=== PATIENT | female | born 1950 | race Caucasian/White ===

== ENCOUNTER → 2016-11-18 09:36 | Outpatient (CLI) | payer MEDICARE ==
[2013-01-17 08:14] VITALS: BMI 44.1
[~2016-11-18 09:36] MED LIST: COZAAR25 MG PO; GLIPIZIDE10 MG PO; LASIX40 MG PO; MOTRIN800 MG PO; NORVASC5 MG PO; PLAQUENIL200 MG PO; PRILOSEC20 MG PO; PROBIOTIC PO; SINGULAIR10 MG PO; SPIRIVA18 MCG INH; VITAMIN D31000 UNIT PO; ZYRTEC10 M1 PO
== END | disposition home or self-care (01) ==
LOC: D.RAD 08:00
DX: J47.9 Bronchiectasis, uncomplicated (principal)

== ENCOUNTER → 2017-05-09 12:51 | Outpatient (CLI) | payer MEDICARE ==
[2013-01-17 08:14] VITALS: BMI 44.1
== END | disposition home or self-care (01) ==
LOC: D.RT 12:51
DX: J47.9 Bronchiectasis, uncomplicated (principal)

== ENCOUNTER → 2017-12-27 05:52 | Outpatient (CLI) | payer MEDICARE ==
[2013-01-17 08:14] VITALS: BMI 44.1
== END | disposition home or self-care (01) ==
LOC: D.MAMMO 05:52
DX: Z12.31 Encounter for screening mammogram for malignant neoplasm of breast (principal)

== ENCOUNTER → 2018-06-20 08:47 | Outpatient (CLI) | payer MEDICARE ==
[2013-01-17 08:14] VITALS: BMI 44.1
== END | disposition home or self-care (01) ==
LOC: D.RT 08:47
DX: J84.9 Interstitial pulmonary disease, unspecified (principal)

== ENCOUNTER → 2018-08-21 09:57 | Outpatient (CLI) | payer MEDICARE ==
[2013-01-17 08:14] VITALS: BMI 44.1
[2018-08-21 10:50] LABS: BASOPHILS 0.5 % (0-2); EOSINOPHILS 0.8 % (0-7); HEMATOCRIT 49.4 % (36.0-48.0); HEMOGLOBIN 16.4 g/dL (12-16); IMMATURE GRANULOCYTES 0.1 % (0-5); LYMPHOCYTES 11.3 % (15-50); MCH 29.4 pg (26.0-34.0); MCHC 33.2 g/dL (31.0-37.0); MCV 88.7 fL (80.0-100.0); MEAN PLATELET VOLUME 10.8 fL (7.4-10.4); MONOCYTES 10.9 % (2-11); NEUTROPHILS 76.4 % (40-80); PLATELET COUNT 161 10x3/uL (130-400); RBC 5.57 10x6/uL (4.00-5.40); RDW 13.8 % (11.5-14.5); WBC 7.5 10x3/uL (4.8-10.8)
[2018-08-24 14:18] LABS: ANCA - ANTIMYELOPEROXIDASE <9.0 U/mL (0.0-9.0); ANCA - ANTIPROTEINASE 3 <3.5 U/mL (0.0-3.5); ANCA - ATYPICAL <1:20 titer (Neg:<1:20); ANCA - CYTOPLASMIC <1:20 titer (Neg:<1:20); ANCA - PERINUCLEAR <1:20 titer (Neg:<1:20)
== END | disposition home or self-care (01) ==
LOC: D.CT 09:57
PROVIDERS: Internal Medicine Pulmonary Disease
DX: J84.9 Interstitial pulmonary disease, unspecified (principal)

== ENCOUNTER → 2018-10-04 12:45 | Outpatient (CLI) | payer MEDICARE ==
[2013-01-17 08:14] VITALS: BMI 44.1
== END | disposition home or self-care (01) ==
LOC: D.CT 09-18 12:59
PROVIDERS: ATTEND Thoracic Surgery (Cardiothoracic Vascular Surgery)
DX: I71.4 Abdominal aortic aneurysm, without rupture (principal); I70.201 Unspecified atherosclerosis of native arteries of extremities, right leg

== ENCOUNTER → 2018-10-13 09:52 | Outpatient (CLI) | payer MEDICARE ==
[2013-01-17 08:14] VITALS: BMI 44.1
== END | disposition home or self-care (01) ==
LOC: D.US 09:52
PROVIDERS: ATTEND Thoracic Surgery (Cardiothoracic Vascular Surgery)
DX: I70.203 Unspecified atherosclerosis of native arteries of extremities, bilateral legs (principal)

== ENCOUNTER 2018-12-19 05:05 | Inpatient (IN) | payer MEDICARE ==
[2018-12-14 15:57] LABS: APPEARANCE CLEAR (CLEAR); BILIRUBIN NEGATIVE (NEGATIVE); COLOR YELLOW (YELLOW); GLUCOSE NEGATIVE (NEGATIVE); KETONE NEGATIVE (NEGATIVE); NITRITE NEGATIVE (NEGATIVE); PROTEIN NEGATIVE (NEGATIVE); SPECIFIC GRAVITY 1.015 (1.005-1.020); UROBILINOGEN NORMAL (NORMAL)
[2018-12-14 16:10] LABS: HEMOGLOBIN 16.5 g/dL (12-16); MCH 30.5 pg (26.0-34.0); MCHC 33.7 g/dL (31.0-37.0); MCV 90.6 fL (80.0-100.0); MEAN PLATELET VOLUME 11.3 fL (7.4-10.4); RBC 5.41 10x6/uL (4.00-5.40); RDW 13.4 % (11.5-14.5); WBC 8.5 10x3/uL (4.8-10.8)
[2018-12-14 16:25] LABS: ALBUMIN 3.8 g/dL (3.4-5.0); BILIRUBIN - TOTAL 0.72 mg/dL (0.2-1.3); CALCIUM 9.6 mg/dL (8.5-10.1); CARBON DIOXIDE 26.7 mmol/L (21.0-32.0); POTASSIUM - SERUM 4.7 mmol/L (3.5-5.1); PROTEIN - SERUM 7.7 g/dL (6.4-8.2)
[2018-12-14 19:40] LABS: INR 1.09 (0.85-1.17); PROTIME 13.6 SECONDS (11.6-15.0)
[2018-12-14 19:41] LABS: APTT 31.2 SECONDS (22.8-39.4)
[~2018-12-19] VITALS: Ht 162.6 cm; Wt 106.5 kg
[2018-12-19] VITALS (42 sets, daily range): BP systolic 99–173; BP diastolic 41–71; BMI 39.4; BMI 39.5
[~2018-12-19 05:05] MED LIST changes: +CELEXA20 MG PO; +CLARITIN 10 MG10 MG PO; +GAS-X125 M1 PO; +HYDROCODON-ACE1 EA10 PO; +IMODIUM2 MG PO; +LISINOPRIL2.5 MG PO; +MOTRIN PM CAPL1 EACH PO; +MUCINEX600 MG PO; +NIASPAN500 MG PO; +PLAQUENIL PO; +STOOL SOFTENER100 MG PO; +VENTOLIN HFA; +VITAMIN D5000 UNIT PO
--- NOTE | 2018-12-19 11:00 | NUR ---
ARRIVED TO UNIT [facility] 1020 VIA BED. ON NON-REBREATHER MASK 100% O2. CT ON LEFT LATERAL SIDE TO WATERSEAL. INCISION ON LEFT UPPER BACK DRESSING CDI. BARON IN PLACE WITH YELLOW URINE NOTED. R-RADIAL CHELLY SECURED IN PLACE WITH WRIST PROTECTOR. CONNECTED TO ICU MONITORS. HAS RIJ DRESSING CDI. CURRENTLY HAS PLASMOLYTE AT 100ML/HR, NITRO AT 28ML/HR, AND CLEVIPREX INITIATED AT THIS TIME AT 1MG/HR PER ORDERS. WILL CONTINUE TO MONITOR. AND TREAT.
--- NOTE | 2018-12-19 11:03 | OP ---
PATIENT NAME: TAPAN CARCAMO MEDICAL RECORD: [id number] :52 LOCATION:D.CVI D.CV03 ADMISSION DATE:12/19/18 SURGEON: DARREN MADRIGAL MD DATE OF OPERATION: 12/19/2018 SURGEON: Darren Madrigal MD ELEMENTARY PRINCIPAL: Jv Willard PROCEDURES PERFORMED: 1. Left video-assisted thoracic surgery with left lingular wedge resection. 2. Bronchoscopy. PREOPERATIVE DIAGNOSIS: Interstitial lung disease. POSTOPERATIVE DIAGNOSIS: Interstitial lung disease. ANESTHESIA: Double-lumen general endotracheal anesthesia. SPECIMENS: Lingula sent for permanent pathology as well as a separate section sent for AFB, fungal, routine aerobic and anaerobic cultures. COMPLICATIONS: None. SPECIMENS: None. BLOOD LOSS: Minimal. CONDITION: Stable. DISPOSITION: CV ICU. OPERATIVE FINDINGS: No significant intrapleural adhesions and wedge resection performed without difficulty. PROCEDURE INDICATIONS: Dyspnea and interstitial lung disease. PROCEDURE IN DETAIL: The patient was brought to the operating suite. General endotracheal anesthesia was obtained with a double-lumen tube. The patient placed in the right lateral decubitus position with appropriate padding and bronchoscopy performed with good position of the tube. No endobronchial lesions in the right lung. The patient's chest was sterilely prepped and draped. Incision was made at approximately the anterior axillary line one level below the tip of the scapula and the pleura was entered just above the lingula, which was then grasped after a second working port more posteriorly was made and the camera was inserted, and then inferiorly and posteriorly, the stapler was inserted. The lung was stapled. Specimen was removed. There was no bleeding. There were no other abnormalities noted with the lung. Chest tube was placed through the anterior site and placed into the apex, sutured into place. The other holes were closed with muscle layer subcutaneous and subcuticular. The patient returned to the supine position, extubated, to CV ICU, stable. TRANSINT:[id number] Voice Confirmation ID: [id number] DOCUMENT ID: [id number] OPERATIVE REPORT [id number] TAPAN CARCAMO DARREN MADRIGAL MD at 1103 CC: ISABEL MARTINEZ MD [id number] DICTATION DATE: 12/19/18 0953 STOCK CRANE OPERATOR: 12/19/18 1010 ADM IN [facility] [address] [facility] [place] [address]
--- NOTE | 2018-12-19 13:41 | NUR ---
NORVAS AND LISINIPRIL PO GIVEN PER ORDERS. ORDERS VERIFIED WITH MEDHAT MENDOZA, BEFORE ADMINISTERING THEM TO PATIENT.
--- NOTE | 2018-12-19 15:55 | NUR ---
PT DANGLED ON SIDE OF BED FOR ABOUT 15MINUTES. CT PUT OUT 6ML BLOODY DRAINAGE. REPOSITIONED PT BACK IN BED. PILLOW PLACED UNDER LEFT ARM. PERCOCET 10MG TAB GIVEN FOR PAIN 03/10. WILL CONTINUE TO MONITOR.
--- NOTE | 2018-12-19 17:00 | NUR ---
PT WITH EYES CLOSED. AROUSES TO VOICE. PULLS BETWEEN 500 AND 750 ON I.S. NO FUTHER NEEDS. WILL CONTINUE TO MONITOR.
--- NOTE | 2018-12-19 19:00 | NUR ---
REPORT RECEIVED, SHIFT ASSESSMENT COMPLETE SEE FLOW SHEET, PT HAS LEFT LATERAL CHEST CTx1 TO WATER SEAL, NO SEAL LEAK NOTED, PT DENIES NEEDS AT THIS TIME, VSS, WILL CONTINUE TO ASSESS
--- NOTE | 2018-12-19 23:00 | NUR ---
REASSESSMENT COMPLETE PER FLOW SHEET, PT AAOx4, REPOSITIONED IN BED WITH ASSIST, VSS, CT TO WATER SEAL, PT DENIES NEEDS AT THIS TIME
[2018-12-20] VITALS (15 sets, daily range): BP systolic 99–147; BP diastolic 44–67; Ht 162.6 cm; Wt 106.5 kg
--- NOTE | 2018-12-20 03:00 | NUR ---
REASSESSMENT COMPLETE PER FLOW SHEET, NO ACUTE CHANGES FROM PRIOR ASSESSMENT, PT DENIES PAIN OR NEEDS, VSS, WILL CONTINUE TO ASSESS
--- NOTE | 2018-12-20 05:00 | NUR ---
PT SAT UP ON BEDSIDE, TCDB COMPLETED, I/S PREFORMED WITH 1000-1250ML, NO ACUTE DISTRESS NOTED, VSS, WILL CONTINUE TO ASSESS
[2018-12-20 06:59] LABS: HEMATOCRIT 42.4 % (36.0-48.0); MCH 29.9 pg (26.0-34.0); MCV 90.6 fL (80.0-100.0); MEAN PLATELET VOLUME 11.2 fL (7.4-10.4); RBC 4.68 10x6/uL (4.00-5.40); RDW 13.2 % (11.5-14.5); WBC 9.7 10x3/uL (4.8-10.8)
[2018-12-20 07:03] LABS: ALBUMIN 3.1 g/dL (3.4-5.0); ANION GAP 11.8 mmol/L (8-16); BILIRUBIN - TOTAL 0.66 mg/dL (0.2-1.3); CALCIUM 8.7 mg/dL (8.5-10.1); CARBON DIOXIDE 26.5 mmol/L (21.0-32.0); CREATININE - SERUM 1.1 mg/dL (0.6-1.3); POTASSIUM - SERUM 4.3 mmol/L (3.5-5.1); PROTEIN - SERUM 6.7 g/dL (6.4-8.2)
--- NOTE | 2018-12-20 08:39 | NUR ---
DR MADRIGAL HERE. L CT DCD BY DR MADRIGAL. 2MG MS GIVEN PRIOR TO TAKING CT OUT. PT OOB TO CHAIR. BREAKFAST TRAY SERVED AND PT FEEDS SELF. FAMILY AT BS. PT MARISA WELL.
[2018-12-20 11:14] LABS: FUNGUS STAIN Final report (())
[2018-12-20] MEDS ORDERED: LOPRESSOR25 MG PO (11:24)
[2018-12-20] MEDS ORDERED: PERCOCET 5-3251 TAB PO (11:25)
--- NOTE | 2018-12-20 16:26 | NUR ---
CVL DCD. TIP INTACT. DSNG APPLIED. PRESSURE HELD. NO BLEEDING NOTED. PT AMBULATED WITH O2. DR MARTINEZ NOTIFIED RE: DC. DR MARTINEZ ADDED UD FOR HOME TX. CM SET UP UD FOR HOME. NO SOB NOTED WITH AMBULATING WITH 4LNC.
--- NOTE | 2018-12-20 17:10 | NUR ---
SABINA MORRIS HERE. DC INSTRUCTIONS GIVEN. RX CALLED TO [facility]. PT VERB UNDERSTANDING.
[2018-12-20 19:08] LABS: ACID FAST SMEAR Negative (()); AFB SPECIMEN PROCESSING Concentration (())
--- NOTE | 2018-12-21 16:40 | MORECARE ---
CASE MANAGEMENT DISCHARGE SUMMARY PATIENT: TAPAN CARCAMO UNIT: [id number] ADM DATE: 12/19/18 AGE: 68 : 51 SEX: F ROOM/BED: D.[facility] AUTHOR: ISATU PADILLA PHYSICIAN: REFERRING PHYSICIAN: CECILY MADRIGAL MD DATE OF SERVICE: 12/21/18 Discharge Plan Patient Name: TAPAN CARCAMO [facility] [facility] 1950 Planned Disposition: Home Anticipated Discharge Date: Discharge Date: 12/20/2018 Expected LOS: Initial Reviewer: [email or web address] Initial Review Date: 12/19/2018 Generated: 12/21/18 5:39 pm DCPIA - Discharge Planning Initial Assessment Updated by [email or web address]: Anne Marie Gallo on 12/21/18 4:35 pm * Is the patient Alert and Oriented? Yes * How many steps to enter\exit or inside your home? * PCP KATHLEEN * Pharmacy [facility] ON [address] * Preadmission Environment Home Alone * ADLs Independent * Equipment Oxygen * List name and contact numbers for known caregivers / representatives who currently or will assist patient after discharge: DIMAS CARCAMO [facility] - [phone] * Verbal permission to speak to the caregivers and representatives has been obtained from the patient. Yes * Community resources currently utilized None * Additional services required to return to the preadmission environment? No * Can the patient safely return to the preadmission environment? Yes * Has this patient been hospitalized within the prior 30 days at any hospital? No External Providers [facility] Next Contact Date: Service Request Date: Service Type: Resolution: Reviewer: Comments: Patient Name: TAPAN CARCAMO Page [phone] at 1640 All edits/amendments must be made on the electronic document DICTATION DATE: 12/21/181638 BOX TURNER: EWA 12/21/181638 RPT#: [id number] DC DATE:12/20/18 STATUS: DIS IN [address] [address] END OF REPORT
--- NOTE | 2018-12-21 16:52 | MORECARE ---
CASE MANAGEMENT DISCHARGE SUMMARY PATIENT: TAPAN CARCAMO UNIT: [id number] ADM DATE: 12/19/18 AGE: 68 : 51 SEX: F ROOM/BED: D.03 AUTHOR: VALERIE,DOC PHYSICIAN: REFERRING PHYSICIAN: CECILY MADRIGAL MD DATE OF SERVICE: 12/21/18 Discharge Plan Patient Name: TAPAN CARCAMO Facility: [facility]:[place] : 1950 Planned Disposition: Home Anticipated Discharge Date: Discharge Date: 12/20/2018 Expected LOS: Initial Reviewer: [email or web address] Initial Review Date: 12/19/2018 Generated: 12/21/18 5:52 pm Comments DCP- Discharge Planning Updated by [email or web address]: Anne Marie Gallo on 12/21/18 3:[address] LATE ENTRY 12/20/18 @ 1400 Patient Name: TAPAN CARCAMO Admission Status: Elective Accout number: [id number] Admission Date: 12-19-2018 : 1950 Admission Diagnosis:INTERSTITIAL PULMONARY DISEASE, UNSPECIFIED Attending: CECILY MADRIGAL Current LOS: 1 Anticipated DC Date: Planned Disposition: Home Primary Insurance: [facility] MEDICARE SOLUTIONS Discharge Planning Comments: CM met with patient at bedside about discharge planning /needs. Patient states she lives alone. Patient states she plans to discharge to her home. States she will have family transport her home upon discharge. Denies need for home health or other community resource needs. States home environment is safe. Patient has home 02 and portable 02 with [facility]. CM will set up Nebulizer and updrafts with [employer] per patient request / md order. CM will continue to follow and assist as needed with discharge planning / needs. [facility] delivered nebulizer to patient room and updraft medication will be mailed to patient home. Nursing called in updraft medication to [facility] on [address] so patient can have updrafts until mail order comes in. Utility Arborist: Anne Marie Gallo DCPIA - Discharge Planning Initial Assessment Updated by [id number]: Anne Marie Gallo on 12/21/18 4:35 pm * Is the patient Alert and Oriented? Yes * How many steps to enter\exit or inside your home? * PCP WANG * Pharmacy [facility] * Preadmission Environment Home Alone * ADLs Independent * Equipment Oxygen * List name and contact numbers for known caregivers / representatives who currently or will assist patient after discharge: DIMAS CARCAMO - [place] - [phone] * Verbal permission to speak to the caregivers and representatives has been obtained from the patient. Yes * Community resources currently utilized None * Additional services required to return to the preadmission environment? No * Can the patient safely return to the preadmission environment? Yes * Has this patient been hospitalized within the prior 30 days at any hospital? No Last DP export: 12/21/18 3:39 p Patient Name: TAPAN CARCAMO Page [phone] at 1652 All edits/amendments must be made on the electronic document DICTATION DATE: 12/21/181651 PROPERTY ADJUSTER: EWA 12/21/181651 RPT#: [id number] DC DATE:12/20/18 STATUS: DIS IN [facility] [address] [place] [address] END OF REPORT
== END 2018-12-20 17:35 | disposition home or self-care (01) | DRG 196 ==
LOC: D.CVICU 05:05 → D.SDCHOLD 05:05 → D.CVICU 07:30
PROVIDERS: ADMIT Thoracic Surgery (Cardiothoracic Vascular Surgery); ATTEND Thoracic Surgery (Cardiothoracic Vascular Surgery)
PROC: 0BB Respiratory System, Excision (ICD-10-PCS; principal; 2018-12-19 07:30)
DX: J84.9 Interstitial pulmonary disease, unspecified (principal); J96.21 Acute and chronic respiratory failure with hypoxia; M35.1 Other overlap syndromes; J98.11 Atelectasis; J47.9 Bronchiectasis, uncomplicated; K21.9 Gastro-esophageal reflux disease without esophagitis; I73.9 Peripheral vascular disease, unspecified; I10 Essential (primary) hypertension; Z86.718 Personal history of other venous thrombosis and embolism; Z87.891 Personal history of nicotine dependence; I73.00 Raynaud's syndrome without gangrene; G62.9 Polyneuropathy, unspecified; M32.9 Systemic lupus erythematosus, unspecified; R91.1 Solitary pulmonary nodule; I89.8 Other specified noninfective disorders of lymphatic vessels and lymph nodes; Z77.090 Contact with and (suspected) exposure to asbestos

== ENCOUNTER → 2019-01-04 10:17 | Outpatient (CLI) | payer MEDICARE ==
[2018-12-20 08:17] VITALS: BMI 40.3
[~2019-01-04 10:17] MED LIST changes: +LOPRESSOR25 MG PO; +PERCOCET 5-3251 TAB PO
[2019-01-04 11:25] LABS: BASOPHILS 0.4 % (0-2); EOSINOPHILS 3.7 % (0-7); HEMATOCRIT 47.7 % (36.0-48.0); HEMOGLOBIN 15.8 g/dL (12-16); IMMATURE GRANULOCYTES 0.4 % (0-5); MCH 30.2 pg (26.0-34.0); MCHC 33.1 g/dL (31.0-37.0); MCV 91.2 fL (80.0-100.0); MEAN PLATELET VOLUME 12.1 fL (7.4-10.4); NEUTROPHILS 71.5 % (40-80); RBC 5.23 10x6/uL (4.00-5.40); RDW 13.2 % (11.5-14.5); WBC 7.4 10x3/uL (4.8-10.8)
[2019-01-04 11:34] LABS: PLATELET COUNT 214 10x3/uL (130-400)
== END | disposition home or self-care (01) ==
LOC: D.RAD 10:17
PROVIDERS: ATTEND Internal Medicine Pulmonary Disease
DX: J84.9 Interstitial pulmonary disease, unspecified (principal); J45.909 Unspecified asthma, uncomplicated

== ENCOUNTER 2019-04-01 17:27 | Observation (INO) | payer MEDICARE ==
[~2019-04-01] VITALS: Ht 162.6 cm; Wt 105.2 kg
[2019-04-01 17:49] LABS: BASOPHILS 0.4 % (0-2); EOSINOPHILS 0.6 % (0-7); HEMATOCRIT 50.1 % (36.0-48.0); HEMOGLOBIN 16.8 g/dL (12-16); IMMATURE GRANULOCYTES 0.1 % (0-5); LYMPHOCYTES 25.7 % (15-50); MCH 29.4 pg (26.0-34.0); MCHC 33.5 g/dL (31.0-37.0); MCV 87.6 fL (80.0-100.0); MEAN PLATELET VOLUME 11.6 fL (7.4-10.4); MONOCYTES 12.1 % (2-11); NEUTROPHILS 61.1 % (40-80); PLATELET COUNT 178 10x3/uL (130-400); RBC 5.72 10x6/uL (4.00-5.40); RDW 14.5 % (11.5-14.5); WBC 7.3 10x3/uL (4.8-10.8)
[2019-04-01 17:54] VITALS: BP 172/78
[2019-04-01 17:58] LABS: APTT 30.9 SECONDS (22.8-39.4); INR 1.1 (0.85-1.17); PROTIME 13.7 SECONDS (11.6-15.0)
[2019-04-01 18:29] VITALS: BP 168/73
[2019-04-01 18:32] LABS: ALKALINE PHOSPHATASE 78 U/L (46-116); ALT (SGPT) 19 U/L (10-68); CALC OSMOLALITY 281 mosm/kg (275-300); CALCIUM 9.8 mg/dL (8.5-10.1); CARBON DIOXIDE 21.6 mmol/L (21.0-32.0); CHLORIDE - SERUM 105 mmol/L (98-107); CREATININE - SERUM 1.4 mg/dL (0.6-1.3); GLUCOSE 100 mg/dL (74-106); POTASSIUM - SERUM 5.3 mmol/L (3.5-5.1); PROTEIN - SERUM 8.7 g/dL (6.4-8.2); SODIUM 139 mmol/L (136-145); UREA NITROGEN 23 mg/dL (7-18); eGFR NON AFRICAN AMERICAN 40 mL/min (90-120)
[2019-04-01 18:43] LABS: CKMB 0.9 U/L (0.0-3.6); CREATINE KINASE 36 UL (21-215); MAGNESIUM - SERUM 1.8 mg/dL (1.8-2.4); THYROID STIMULATING HORMONE 2.37 uIU/mL (0.36-3.74)
[2019-04-01 18:46] LABS: TROPONIN-I < 0.017 ng/mL (0.000-0.060)
[2019-04-01 20:00] VITALS: BP 160/88
[2019-04-01] MEDS ORDERED: HYDROCODON-ACE1 EA10 PO (20:02)
[2019-04-01] MEDS ORDERED: OMEPRAZOLE40 MG PO (20:04)
[2019-04-01] MEDS ORDERED: ALBUTEROL SULF8.5 GM INH (20:07)
[2019-04-01] MEDS ORDERED: CARAFATE1 G PO (20:10)
[2019-04-01] MEDS ORDERED: PEPCID40 MG PO (20:10)
[2019-04-01] MEDS ORDERED: PROVENTIL/2.5 MG/3 M INH (20:12)
[2019-04-01] MEDS ORDERED: FLUTICASONE PRO16 GM NASAL (20:13)
[2019-04-01 23:41] VITALS: BP 160/88
[2019-04-02] VITALS: BP 148/68
[2019-04-02 04:00] VITALS: BP 129/67
[2019-04-02 08:05] VITALS: BP 119/50
[2019-04-02 08:58] VITALS: Ht 162.6 cm; Wt 105.2 kg
--- NOTE | 2019-04-02 09:38 | MORECARE ---
CASE MANAGEMENT DISCHARGE SUMMARY PATIENT: TAPAN CRAWFORD UNIT: [id number] ADM DATE: 04/01/19 AGE: 68 : 51 SEX: F ROOM/BED: D.2232 AUTHOR: ISATU PADILLA PHYSICIAN: REFERRING PHYSICIAN: KALLI SEO MD DATE OF SERVICE: 04/02/19 Discharge Plan Patient Name: TAPAN CRAWFORD [facility] [facility] 1950 Planned Disposition: Home Anticipated Discharge Date: Discharge Date: Expected LOS: Initial Reviewer: [email or web address] Initial Review Date: 04/02/2019 Generated: 04/02/19 10:37 am DCPIA - Discharge Planning Initial Assessment Updated by [email or web address]: Keila Biggs on 04/02/19 9:37 am * Is the patient Alert and Oriented? Yes * How many steps to enter\exit or inside your home? 09/02 flight * PCP Dr. Medley * Pharmacy [facility] * Preadmission Environment Home with Family * ADLs Partial Dependent * Partial ADLs (Assistance needed) Ambulation * Equipment Nebulizer Other Oxygen Rolling Walker * Other Equipment Portable oxygen * List name and contact numbers for known caregivers / representatives who currently or will assist patient after discharge: Samgarrison whiteside Yany Crawford - Son and [facility] - [phone] * Verbal permission to speak to the caregivers and representatives has been obtained from the patient. Yes * Community resources currently utilized None * Please name any agencies selected above. DME for oxygen is [facility] * Additional services required to return to the preadmission environment? No * Can the patient safely return to the preadmission environment? Yes * Has this patient been hospitalized within the prior 30 days at any hospital? No Patient Name: TAPAN CRAWFORD Page [phone] at 0938 All edits/amendments must be made on the electronic document DICTATION DATE: 04/02/19936 POULTRY SERVICE TECHNICIAN: EWA 04/02/19936 RPT#: [id number] DC DATE: STATUS: ADM IN [place] [id number] END OF REPORT
--- NOTE | 2019-04-02 09:44 | MORECARE ---
CASE MANAGEMENT DISCHARGE SUMMARY PATIENT: TAPAN CARCAMO UNIT: [id number] ADM DATE: 04/01/19 AGE: 68 : 51 SEX: F ROOM/BED: D.2232 AUTHOR: VALERIE,DOC PHYSICIAN: REFERRING PHYSICIAN: KALLI SEO MD DATE OF SERVICE: 04/02/19 Discharge Plan Patient Name: TAPAN CARCAMO Facility: [facility]:[place] : 1950 Planned Disposition: Home Anticipated Discharge Date: Discharge Date: Expected LOS: Initial Reviewer: [email or web address] Initial Review Date: 04/02/2019 Generated: 04/02/19 10:44 am Comments DCP- Discharge Planning Updated by [email or web address]: Keila Biggs on 04/02/19 8:[address] Patient Name: TAPAN CARCAMO Admission Status: ER Accout number: [id number] Admission Date: 04-01-2019 : 1950 Admission Diagnosis: Attending: KALLI SEO Current LOS: 1 Anticipated DC Date: Planned Disposition: Home Primary Insurance: [facility] MEDICARE SOLUTIONS Discharge Planning Comments: CM met with patient to complete initial dc planning assessment. CM educated patient on the CM role and verbal consent given by patient to complete assessment. Patient lives at home with her son (Sam) and her daughter in law. At discharge patient plans to return and feels this is a safe discharge. CM discussed availability of home health, rehab services, and medical equipment. Patient denied known discharge needs at this time. States even though the house is a 3 level home, she only uses the first level, states her bedroom is on the first level as well as the living, kitchen and bathroom. No needs identified. CM will continue to follow and will assist as needed with dc plans/needs. Manager Er: Keila Biggs DCPIA - Discharge Planning Initial Assessment Updated by [email or web address]: Keila Biggs on 04/02/19 9:37 am * Is the patient Alert and Oriented? Yes * How many steps to enter\exit or inside your home? 2/2 flight * PCP Dr. Medley * Pharmacy [facility] on [address] * Preadmission Environment Home with Family * ADLs Partial Dependent * Partial ADLs (Assistance needed) Ambulation * Equipment Nebulizer Other Oxygen Rolling Walker * Other Equipment Portable oxygen * List name and contact numbers for known caregivers / representatives who currently or will assist patient after discharge: Chito Carcamo - Son and [facility] [phone] * Verbal permission to speak to the caregivers and representatives has been obtained from the patient. Yes * Community resources currently utilized None * Please name any agencies selected above. DME for oxygen is [facility] * Additional services required to return to the preadmission environment? No * Can the patient safely return to the preadmission environment? Yes * Has this patient been hospitalized within the prior 30 days at any hospital? No Last DP export: 04/02/19 8:38 am Patient Name: TAPAN CARCAMO Page 88476 at 0944 All edits/amendments must be made on the electronic document DICTATION DATE: 04/02/19943 INSULATOR TECHNICIAN: EWA 04/02/19943 RPT#: [id number] DC DATE: STATUS: ADM IN [facility] [address] [place] [address] END OF REPORT
[2019-04-02 12:15] LABS: CKMB 1.1 U/L (0.0-3.6); CREATINE KINASE 26 UL (21-215); TROPONIN-I < 0.017 ng/mL (0.000-0.060)
[2019-04-02 16:57] LABS: CKMB 0.8 U/L (0.0-3.6); CREATINE KINASE 26 UL (21-215); TROPONIN-I 0.018 ng/mL (0.000-0.060)
[2019-04-02 17:16] VITALS: BP 135/46
[2019-04-02 19:48] VITALS: BP 133/60
[2019-04-02 22:37] LABS: CKMB 0.8 U/L (0.0-3.6); CREATINE KINASE 37 UL (21-215); TROPONIN-I 0.017 ng/mL (0.000-0.060)
[2019-04-03 00:59] VITALS: BP 139/54
[2019-04-03 05:08] VITALS: BP 136/59
[2019-04-03 06:05] LABS: BASOPHILS 0.1 % (0-2); EOSINOPHILS 1.7 % (0-7); HEMATOCRIT 47.3 % (36.0-48.0); HEMOGLOBIN 15.8 g/dL (12-16); IMMATURE GRANULOCYTES 0.3 % (0-5); LYMPHOCYTES 15.4 % (15-50); MCH 29.2 pg (26.0-34.0); MCHC 33.4 g/dL (31.0-37.0); MCV 87.4 fL (80.0-100.0); MEAN PLATELET VOLUME 11.6 fL (7.4-10.4); MONOCYTES 15.9 % (2-11); NEUTROPHILS 66.6 % (40-80); PLATELET COUNT 162 10x3/uL (130-400); RBC 5.41 10x6/uL (4.00-5.40); RDW 14.7 % (11.5-14.5); WBC 6.9 10x3/uL (4.8-10.8)
[2019-04-03 06:31] LABS: ALBUMIN 3.3 g/dL (3.4-5.0); ANION GAP 11.1 mmol/L (8-16); BILIRUBIN - TOTAL 0.72 mg/dL (0.2-1.3); CALCIUM 9.3 mg/dL (8.5-10.1); CARBON DIOXIDE 26.4 mmol/L (21.0-32.0); CHOL - HDL RATIO 4.3 ratio (2.3-4.1); CREATININE - SERUM 1.4 mg/dL (0.6-1.3); LDL-HDL RATIO 2.8 ratio (1.5-3.5); PROTEIN - SERUM 7.5 g/dL (6.4-8.2)
[2019-04-03 06:32] LABS: POTASSIUM - SERUM 4.5 mmol/L (3.5-5.1)
[2019-04-03 08:04] VITALS: BP 152/57
[2019-04-03 12:36] VITALS: BP 124/51
[2019-04-03 16:25] VITALS: BP 135/54
[2019-04-03 20:00] VITALS: BP 148/58
[2019-04-04 00:41] VITALS: BP 167/65
[2019-04-04 04:35] VITALS: BP 142/55
[2019-04-04 06:57] LABS: BASOPHILS 0.3 % (0-2); EOSINOPHILS 1.7 % (0-7); HEMATOCRIT 45.9 % (36.0-48.0); HEMOGLOBIN 15.3 g/dL (12-16); IMMATURE GRANULOCYTES 0.1 % (0-5); LYMPHOCYTES 23.4 % (15-50); MCH 29.3 pg (26.0-34.0); MCHC 33.3 g/dL (31.0-37.0); MCV 87.8 fL (80.0-100.0); MEAN PLATELET VOLUME 11.7 fL (7.4-10.4); MONOCYTES 15.3 % (2-11); NEUTROPHILS 59.2 % (40-80); PLATELET COUNT 157 10x3/uL (130-400); RBC 5.23 10x6/uL (4.00-5.40); RDW 14.8 % (11.5-14.5); WBC 6.9 10x3/uL (4.8-10.8)
[2019-04-04 07:19] LABS: ALBUMIN 3.1 g/dL (3.4-5.0); ANION GAP 12.8 mmol/L (8-16); BILIRUBIN - TOTAL 0.61 mg/dL (0.2-1.3); CALCIUM 9.1 mg/dL (8.5-10.1); CARBON DIOXIDE 27.6 mmol/L (21.0-32.0); CREATININE - SERUM 1.2 mg/dL (0.6-1.3); POTASSIUM - SERUM 4.4 mmol/L (3.5-5.1); PROTEIN - SERUM 6.7 g/dL (6.4-8.2)
[2019-04-04 08:28] VITALS: BP 164/61
[2019-04-04 12:37] VITALS: BP 134/57
--- NOTE | 2019-04-04 15:38 | MORECARE ---
CASE MANAGEMENT DISCHARGE SUMMARY PATIENT: TAPAN CARCAMO UNIT: [id number] ADM DATE: 04/01/19 AGE: 68 : 51 SEX: F ROOM/BED: D.2232 AUTHOR: VALERIE,DOC PHYSICIAN: REFERRING PHYSICIAN: KALLI SEO MD DATE OF SERVICE: 04/04/19 Discharge Plan Patient Name: TAPAN CARCAMO Facility: [facility]:[place] : 1950 Planned Disposition: Home Anticipated Discharge Date: Discharge Date: Expected LOS: Initial Reviewer: [email or web address] Initial Review Date: 04/02/2019 Generated: 04/04/19 4:37 pm DCP- Discharge Planning Updated by [email or web address]: Keila Biggs on 04/02/19 8:[address] Patient Name: TAPAN CARCAMO Admission Status: ER Accout number: [id number] Admission Date: 04-01-2019 : 1950 Admission Diagnosis: Attending: KALLI SEO Current LOS: 1 Anticipated DC Date: Planned Disposition: Home Primary Insurance: [facility] MEDICARE SOLUTIONS Discharge Planning Comments: CM met with patient to complete initial dc planning assessment. CM educated patient on the CM role and verbal consent given by patient to complete assessment. Patient lives at home with her son (Sam) and her daughter in law. At discharge patient plans to return and feels this is a safe discharge. CM discussed availability of home health, rehab services, and medical equipment. Patient denied known discharge needs at this time. States even though the house is a 3 level home, she only uses the first level, states her bedroom is on the first level as well as the living, kitchen and bathroom. No needs identified. CM will continue to follow and will assist as needed with dc plans/needs. Retail Salesworker: Keila Biggs DCPIA - Discharge Planning Initial Assessment Updated by [email or web address]: Keila Biggs on 04/02/19 9:37 am * Is the patient Alert and Oriented? Yes * How many steps to enter\exit or inside your home? 2/2 flight * PCP Dr. Medley * Pharmacy [facility] on [address] * Preadmission Environment Home with Family * ADLs Partial Dependent * Partial ADLs (Assistance needed) Ambulation * Equipment Nebulizer Other Oxygen Rolling Walker * Other Equipment Portable oxygen * List name and contact numbers for known caregivers / representatives who currently or will assist patient after discharge: Chito Carcamo - Son and [facility] - [phone] * Verbal permission to speak to the caregivers and representatives has been obtained from the patient. Yes * Community resources currently utilized None * Please name any agencies selected above. DME for oxygen is [facility] * Additional services required to return to the preadmission environment? No * Can the patient safely return to the preadmission environment? Yes * Has this patient been hospitalized within the prior 30 days at any hospital? No External Providers External Provider: OTHER-OTHER Next Contact Date: Service Request Date: Service Type: Resolution: Reviewer: Comments: Coverage Notice Reviewer: [email or web address] Claudia Biggs Notice Issued Date-Time: 04/02/2019 15:01 Notice Type: Medicare Outpatient Observation Notice Notice Delivered To: Patient Relationship to Patient: Self Coffee Attendant Name: Delivery Method: HAND - Hand Delivered Litzy Days: Prior Verbal Notification: Recipient Understood Notice: Yes Recipient Signature: Yes Med Rec Note Co-signed by Attending: Coverage Notice Comment: LAZCANO delivered, explained, signed, given, copy placed in MR Last DP export: 04/02/19 8:44 am Patient Name: TAPAN CARCAMO Page 19779 at 1538 All edits/amendments must be made on the electronic document DICTATION DATE: 04/04/191536 CANE WEIGHER: EWA 04/04/191536 RPT#: [id number] DC DATE: STATUS: ADM IN [facility] [address] [place] [address] END OF REPORT
[2019-04-04 16:45] VITALS: BP 146/66
[2019-04-04 20:47] VITALS: BP 161/56
[2019-04-05 00:36] VITALS: BP 142/59
[2019-04-05 05:08] VITALS: BP 147/65
[2019-04-05 06:50] LABS: BASOPHILS 0.1 % (0-2); EOSINOPHILS 0.3 % (0-7); HEMATOCRIT 43.6 % (36.0-48.0); HEMOGLOBIN 15.4 g/dL (12-16); IMMATURE GRANULOCYTES 0.1 % (0-5); LYMPHOCYTES 22.2 % (15-50); MCH 30.6 pg (26.0-34.0); MCHC 35.3 g/dL (31.0-37.0); MCV 86.5 fL (80.0-100.0); MEAN PLATELET VOLUME 11.1 fL (7.4-10.4); MONOCYTES 10.9 % (2-11); NEUTROPHILS 66.4 % (40-80); PLATELET COUNT 153 10x3/uL (130-400); RBC 5.04 10x6/uL (4.00-5.40); RDW 14.5 % (11.5-14.5)
[2019-04-05 07:00] LABS: WBC 8.8 10x3/uL (4.8-10.8)
[2019-04-05 07:21] LABS: ALBUMIN 3.2 g/dL (3.4-5.0); ANION GAP 11.4 mmol/L (8-16); BILIRUBIN - TOTAL 0.44 mg/dL (0.2-1.3); CALCIUM 9.4 mg/dL (8.5-10.1); CARBON DIOXIDE 27.4 mmol/L (21.0-32.0); CREATININE - SERUM 1.2 mg/dL (0.6-1.3); POTASSIUM - SERUM 3.8 mmol/L (3.5-5.1)
[2019-04-05 08:50] VITALS: BP 143/53
--- NOTE | 2019-04-05 09:51 | MORECARE ---
CASE MANAGEMENT DISCHARGE SUMMARY PATIENT: TAPAN CARCAMO UNIT: [id number] ADM DATE: 04/01/19 AGE: 68 : 51 SEX: F ROOM/BED: D.2232 AUTHOR: VALERIE,DOC PHYSICIAN: REFERRING PHYSICIAN: KALLI SEO MD DATE OF SERVICE: 04/05/19 Discharge Plan Patient Name: TAPAN CARCAMO Facility: [facility]:[place] : 1950 Planned Disposition: Home Anticipated Discharge Date: Discharge Date: Expected LOS: Initial Reviewer: [email or web address] Initial Review Date: 04/02/2019 Generated: 04/05/19 10:50 am DCP- Discharge Planning Updated by [email or web address]: Keila Biggs on 04/02/19 8:[address] Patient Name: TAPAN CARCAMO Admission Status: ER Accout number: [id number] Admission Date: 04-01-2019 : 1950 Admission Diagnosis: Attending: KALLI SEO Current LOS: 1 Anticipated DC Date: Planned Disposition: Home Primary Insurance: [facility] MEDICARE SOLUTIONS Discharge Planning Comments: CM met with patient to complete initial dc planning assessment. CM educated patient on the CM role and verbal consent given by patient to complete assessment. Patient lives at home with her son (Sam) and her daughter in law. At discharge patient plans to return and feels this is a safe discharge. CM discussed availability of home health, rehab services, and medical equipment. Patient denied known discharge needs at this time. States even though the house is a 3 level home, she only uses the first level, states her bedroom is on the first level as well as the living, kitchen and bathroom. No needs identified. CM will continue to follow and will assist as needed with dc plans/needs. Embedded Processor: Keila Biggs DCPIA - Discharge Planning Initial Assessment Updated by [email or web address]: Keila Biggs on 04/02/19 9:37 am * Is the patient Alert and Oriented? Yes * How many steps to enter\exit or inside your home? 2/2 flight * PCP Dr. Medley * Pharmacy [facility] on [address] * Preadmission Environment Home with Family * ADLs Partial Dependent * Partial ADLs (Assistance needed) Ambulation * Equipment Nebulizer Other Oxygen Rolling Walker * Other Equipment Portable oxygen * List name and contact numbers for known caregivers / representatives who currently or will assist patient after discharge: Chito Carcamo - Son and [facility] - [phone] * Verbal permission to speak to the caregivers and representatives has been obtained from the patient. Yes * Community resources currently utilized None * Please name any agencies selected above. DME for oxygen is [facility] * Additional services required to return to the preadmission environment? No * Can the patient safely return to the preadmission environment? Yes * Has this patient been hospitalized within the prior 30 days at any hospital? No External Providers External Provider: [facility] Next Contact Date: Service Request Date: Service Type: Resolution: Reviewer: Comments: Coverage Notice Reviewer: [email or web address] Claudia Biggs Notice Issued Date-Time: 04/02/2019 15:01 Notice Type: Medicare Outpatient Observation Notice Notice Delivered To: Patient Relationship to Patient: Self Seo Assistant Name: Delivery Method: HAND - Hand Delivered Litzy Days: Prior Verbal Notification: Recipient Understood Notice: Yes Recipient Signature: Yes Med Rec Note Co-signed by Attending: Coverage Notice Comment: LAZCANO delivered, explained, signed, given, copy placed in MR Last DP export: 04/04/19 2:38 pm Patient Name: TAPAN CARCAMO Page 89506 at 0951 All edits/amendments must be made on the electronic document DICTATION DATE: 04/05/19949 NEWSAGENT: EWA 04/05/19949 RPT#: [id number] DC DATE: STATUS: ADM IN [facility] [address] [place] [address] END OF REPORT
--- NOTE | 2019-04-05 09:59 | MORECARE ---
CASE MANAGEMENT DISCHARGE SUMMARY PATIENT: TAPAN CARCAMO UNIT: [id number] ADM DATE: 04/01/19 AGE: 68 : 51 SEX: F ROOM/BED: D.2232 AUTHOR: VALERIEDOC PHYSICIAN: REFERRING PHYSICIAN: KALLI SEO MD DATE OF SERVICE: 04/05/19 Discharge Plan Patient Name: TAPAN CARCAMO Facility: [facility]:[place] : 1950 Planned Disposition: Home Anticipated Discharge Date: Discharge Date: Expected LOS: Initial Reviewer: [email or web address] Initial Review Date: 04/02/2019 Generated: 04/05/19 10:58 am Comments DCP- Discharge Planning Updated by [email or web address]: Keila Biggs on 04/05/19 8:[address] Patient already has portable oxygen from [facility] and it is in her room. She states she would like to get a battery powered portable oxygen. I have called Everardo with [facility] and clinical faxed to see if she would qualify. CM will continue to follow and assist with discharge planning/needs. DCP- Discharge Planning Updated by [email or web address]: Keila Biggs on 04/02/19 8:[address] Patient Name: TAPAN CARCAMO Admission Status: ER Accout number: [id number] Admission Date: 04-01-2019 : 1950 Admission Diagnosis: Attending: KALLI SEO Current LOS: 1 Anticipated DC Date: Planned Disposition: Home Primary Insurance: [facility] MEDICARE SOLUTIONS Discharge Planning Comments: CM met with patient to complete initial dc planning assessment. CM educated patient on the CM role and verbal consent given by patient to complete assessment. Patient lives at home with her son (Sam) and her daughter in law. At discharge patient plans to return and feels this is a safe discharge. CM discussed availability of home health, rehab services, and medical equipment. Patient denied known discharge needs at this time. States even though the house is a 3 level home, she only uses the first level, states her bedroom is on the first level as well as the living, kitchen and bathroom. No needs identified. CM will continue to follow and will assist as needed with dc plans/needs. Mower Sharpener: Keila Biggs DCPIA - Discharge Planning Initial Assessment Updated by [email or web address]: Keila Biggs on 04/02/19 9:37 am * Is the patient Alert and Oriented? Yes * How many steps to enter\exit or inside your home? 09/02 flight * PCP Dr. Medley * Pharmacy [facility] * Preadmission Environment Home with Family * ADLs Partial Dependent * Partial ADLs (Assistance needed) Ambulation * Equipment Nebulizer Other Oxygen Rolling Walker * Other Equipment Portable oxygen * List name and contact numbers for known caregivers / representatives who currently or will assist patient after discharge: Sam miesha Yany Carcamo - Son and [facility] - [phone] * Verbal permission to speak to the caregivers and representatives has been obtained from the patient. Yes * Community resources currently utilized None * Please name any agencies selected above. DME for oxygen is [facility] * Additional services required to return to the preadmission environment? No * Can the patient safely return to the preadmission environment? Yes * Has this patient been hospitalized within the prior 30 days at any hospital? No Coverage Notice Reviewer: [id number] - Keila Biggs Notice Issued Date-Time: 04/02/2019 15:01 Notice Type: Medicare Outpatient Observation Notice Notice Delivered To: Patient Relationship to Patient: Self Bit Tripoler Name: Delivery Method: HAND - Hand Delivered Litzy Days: Prior Verbal Notification: Recipient Understood Notice: Yes Recipient Signature: Yes Med Rec Note Co-signed by Attending: Coverage Notice Comment: LAZCANO delivered, explained, signed, given, copy placed in MR Last DP export: 04/05/19 8:51 am Patient Name: TAPAN CARCAMO Page 56262 at 0959 All edits/amendments must be made on the electronic document DICTATION DATE: 04/05/19957 SUPERVISOR BINDERY: EWA 04/05/19957 RPT#: [id number] DC DATE: STATUS: ADM IN [facility] [address] [place] [address] END OF REPORT
[2019-04-05] MEDS ORDERED: PLAVIX75 MG PO (10:36)
--- NOTE | 2019-04-05 11:32 | MORECARE ---
CASE MANAGEMENT DISCHARGE SUMMARY PATIENT: TAPAN CRAWFORD UNIT: [id number] ADM DATE: 04/01/19 AGE: 68 : 51 SEX: F ROOM/BED: D.2232 AUTHOR: ISATU PADILLA PHYSICIAN: REFERRING PHYSICIAN: KALLI SEO MD DATE OF SERVICE: 04/05/19 Discharge Plan Patient Name: TAPAN CRAWFORD Facility: [facility]:[place] : 1950 Planned Disposition: Home Anticipated Discharge Date: Discharge Date: Expected LOS: Initial Reviewer: [email or web address] Initial Review Date: 04/02/2019 Generated: 04/05/19 12:31 pm Comments DCP- Discharge Planning Updated by [email or web address]: Keila Salinasjorge on 04/05/19 10:[address] Everardo with [facility] states that she is not eligible for battery operated portable oxygen. She will be eligible in 20 months. I informed the patient. She does have portable oxygen tanks. Discharging home today with family. DCP- Discharge Planning Updated by [email or web address]: Keila Biggs on 04/05/19 8:[address] Patient already has portable oxygen from [facility] and it is in her room. She states she would like to get a battery powered portable oxygen. I have called Everardo with [facility] and clinical faxed to see if she would qualify. CM will continue to follow and assist with discharge planning/needs. DCP- Discharge Planning Updated by [id number]: Keila Biggs on 04/02/19 8:[address] Patient Name: TAPAN CRAWFORD Admission Status: ER Accout number: [id number] Admission Date: 04-01-2019 : 1950 Admission Diagnosis: Attending: KALLI SEO Current LOS: 1 Anticipated DC Date: Planned Disposition: Home Primary Insurance: [facility] MEDICARE SOLUTIONS Discharge Planning Comments: CM met with patient to complete initial dc planning assessment. CM educated patient on the CM role and verbal consent given by patient to complete assessment. Patient lives at home with her son (Sam) and her daughter in law. At discharge patient plans to return and feels this is a safe discharge. CM discussed availability of home health, rehab services, and medical equipment. Patient denied known discharge needs at this time. States even though the house is a 3 level home, she only uses the first level, states her bedroom is on the first level as well as the living, kitchen and bathroom. No needs identified. CM will continue to follow and will assist as needed with dc plans/needs. Dairy Farmer: Keila Dian DCPIA - Discharge Planning Initial Assessment Updated by [email or web address]: Keila Biggs on 04/02/19 9:37 am * Is the patient Alert and Oriented? Yes * How many steps to enter\exit or inside your home? 09/02 flight * PCP Dr. Medley * Pharmacy [facility] [address] * Preadmission Environment Home with Family * ADLs Partial Dependent * Partial ADLs (Assistance needed) Ambulation * Equipment Nebulizer Other Oxygen Rolling Walker * Other Equipment Portable oxygen * List name and contact numbers for known caregivers / representatives who currently or will assist patient after discharge: Sam miesha Yany Crawford - Son and [facility] - [phone] * Verbal permission to speak to the caregivers and representatives has been obtained from the patient. Yes * Community resources currently utilized None * Please name any agencies selected above. DME for oxygen is [facility] * Additional services required to return to the preadmission environment? No * Can the patient safely return to the preadmission environment? Yes * Has this patient been hospitalized within the prior 30 days at any hospital? No Coverage Notice Reviewer: [id number] - Keila Dian Notice Issued Date-Time: 04/02/2019 15:01 Notice Type: Medicare Outpatient Observation Notice Notice Delivered To: Patient Relationship to Patient: Self Supervisor Farm Equipment Maintenance Name: Delivery Method: HAND - Hand Delivered Litzy Days: Prior Verbal Notification: Recipient Understood Notice: Yes Recipient Signature: Yes Med Rec Note Co-signed by Attending: Coverage Notice Comment: LAZCANO delivered, explained, signed, given, copy placed in MR Last DP export: 04/05/19 8:58 am Patient Name: TAPAN CRAWFORD Page 31319 at 1132 All edits/amendments must be made on the electronic document DICTATION DATE: 04/05/19 1131 SOCIAL MEDIA EDITOR: EWA 04/05/19 1131 RPT#: [id number] DC DATE: STATUS: ADM IN [facility] [address] [place] [address] END OF REPORT
--- NOTE | 2019-04-09 12:40 | MORECARE ---
CASE MANAGEMENT DISCHARGE SUMMARY PATIENT: TAPAN CRAWFORD UNIT: [id number] ADM DATE: 04/01/19 AGE: 68 : 51 SEX: F ROOM/BED: D.2232 AUTHOR: ISATU PADILLA PHYSICIAN: REFERRING PHYSICIAN: KALLI SEO MD DATE OF SERVICE: 04/09/19 Discharge Plan Patient Name: TAPAN CRAWFORD Facility: [facility]:[place] : 1950 Planned Disposition: Home Anticipated Discharge Date: Discharge Date: 04/05/2019 Expected LOS: 0 Initial Reviewer: [email or web address] Initial Review Date: 04/02/2019 Generated: 04/09/19 1:40 pm Comments DCP- Discharge Planning Updated by [id number]: Keila Salinasjorge on 04/05/19 10:[address] Everardo with [facility] states that she is not eligible for battery operated portable oxygen. She will be eligible in 20 months. I informed the patient. She does have portable oxygen tanks. Discharging home today with family. DCP- Discharge Planning Updated by [id number]: Keila Biggs on 04/05/19 8:[address] Patient already has portable oxygen from [facility] and it is in her room. She states she would like to get a battery powered portable oxygen. I have called Everardo with [facility] and clinical faxed to see if she would qualify. CM will continue to follow and assist with discharge planning/needs. DCP- Discharge Planning Updated by [email or web address]: Keila Biggs on 04/02/19 8:[address] Patient Name: TAPAN CRAWFORD Admission Status: ER Accout number: [id number] Admission Date: 04-01-2019 : 1950 Admission Diagnosis: Attending: KALLI SEO Current LOS: 1 Anticipated DC Date: Planned Disposition: Home Primary Insurance: [facility] MEDICARE SOLUTIONS Discharge Planning Comments: CM met with patient to complete initial dc planning assessment. CM educated patient on the CM role and verbal consent given by patient to complete assessment. Patient lives at home with her son (Sam) and her daughter in law. At discharge patient plans to return and feels this is a safe discharge. CM discussed availability of home health, rehab services, and medical equipment. Patient denied known discharge needs at this time. States even though the house is a 3 level home, she only uses the first level, states her bedroom is on the first level as well as the living, kitchen and bathroom. No needs identified. CM will continue to follow and will assist as needed with dc plans/needs. Painter Apprentice: Keila Biggs DCPIA - Discharge Planning Initial Assessment Updated by [email or web address]: Keila Biggs on 04/02/19 9:37 am * Is the patient Alert and Oriented? Yes * How many steps to enter\exit or inside your home? 09/02 flight * PCP Dr. Medley * Pharmacy [facility] on [address] * Preadmission Environment Home with Family * ADLs Partial Dependent * Partial ADLs (Assistance needed) Ambulation * Equipment Nebulizer Other Oxygen Rolling Walker * Other Equipment Portable oxygen * List name and contact numbers for known caregivers / representatives who currently or will assist patient after discharge: Chito Crawford - Son and [facility] - [phone] * Verbal permission to speak to the caregivers and representatives has been obtained from the patient. Yes * Community resources currently utilized None * Please name any agencies selected above. DME for oxygen is [facility] * Additional services required to return to the preadmission environment? No * Can the patient safely return to the preadmission environment? Yes * Has this patient been hospitalized within the prior 30 days at any hospital? No Coverage Notice Reviewer: [id number] - Keila Dian Notice Issued Date-Time: 04/02/2019 15:01 Notice Type: Medicare Outpatient Observation Notice Notice Delivered To: Patient Relationship to Patient: Self Cane Pusher Name: Delivery Method: HAND - Hand Delivered Litzy Days: Prior Verbal Notification: Recipient Understood Notice: Yes Recipient Signature: Yes Med Rec Note Co-signed by Attending: Coverage Notice Comment: LAZCANO delivered, explained, signed, given, copy placed in MR Last DP export: 04/05/19 10:32 am Patient Name: TAPAN CRAWFORD Page [phone] at 1240 All edits/amendments must be made on the electronic document DICTATION DATE: 04/09/19 1239 FAMILY DENTIST: EWA 04/09/19 1239 RPT#: [id number] DC DATE:04/05/19 STATUS: DIS IN [facility] [address] [place] [address] END OF REPORT
== END 2019-04-05 15:23 | disposition home or self-care (01) ==
LOC: D.ER 17:27 → D.MS 18:47 → OBSVTIME 18:47 → D.MS 04-05 15:23
PROVIDERS: Family Medicine; ADMIT Internal Medicine Nephrology; ATTEND Internal Medicine Nephrology
DX: G45.9 Transient cerebral ischemic attack, unspecified (principal); G81.91 Hemiplegia, unspecified affecting right dominant side; R47.81 Slurred speech; E11.40 Type 2 diabetes mellitus with diabetic neuropathy, unspecified; I10 Essential (primary) hypertension; I73.9 Peripheral vascular disease, unspecified; J44.9 Chronic obstructive pulmonary disease, unspecified; J45.909 Unspecified asthma, uncomplicated; K21.9 Gastro-esophageal reflux disease without esophagitis; K58.9 Irritable bowel syndrome, unspecified; M77.9 Enthesopathy, unspecified; Z86.711 Personal history of pulmonary embolism; J96.11 Chronic respiratory failure with hypoxia; J47.9 Bronchiectasis, uncomplicated; M17.10 Unilateral primary osteoarthritis, unspecified knee; M32.9 Systemic lupus erythematosus, unspecified; I73.00 Raynaud's syndrome without gangrene

== ENCOUNTER → 2019-08-07 09:37 | Outpatient (CLI) | payer MEDICARE ==
[2019-04-02 08:58] VITALS: BMI 39.8
[~2019-08-07 09:37] MED LIST changes: +ALBUTEROL SULF8.5 GM INH; +CARAFATE1 G PO; +FLUTICASONE PRO16 GM NASAL; +OMEPRAZOLE40 MG PO; +PEPCID40 MG PO; +PLAVIX75 MG PO; +PROVENTIL/2.5 MG/3 M INH
== END | disposition home or self-care (01) ==
LOC: D.RT 04-04 08:00
PROVIDERS: ATTEND Internal Medicine Pulmonary Disease
DX: J84.9 Interstitial pulmonary disease, unspecified (principal)

== ENCOUNTER → 2019-08-20 11:52 | Outpatient (CLI) | payer MEDICARE ==
[2019-04-02 08:58] VITALS: BMI 39.8
[2019-08-20 12:51] LABS: CREATININE - SERUM 1.1 mg/dL (0.6-1.3)
== END | disposition home or self-care (01) ==
LOC: D.CT 08-14 13:00
PROVIDERS: ATTEND Internal Medicine Pulmonary Disease
DX: R07.9 Chest pain, unspecified (principal); R22.40 Localized swelling, mass and lump, unspecified lower limb

== ENCOUNTER 2019-09-28 20:11 | Inpatient (IN) | payer MEDICARE ==
[~2019-09-28] VITALS: Ht 162.6 cm; Wt 103.0 kg
[2019-09-28] MEDS ORDERED: IMURAN50 MG PO (20:20)
[2019-09-28] MEDS ORDERED: IPRAT-ALBUT 0.5-3 ML UPD (20:21)
[2019-09-28 20:54] LABS: BASOPHILS 0.2 % (0-2); EOSINOPHILS 0.3 % (0-7); HEMATOCRIT 48.6 % (36.0-48.0); HEMOGLOBIN 16.8 g/dL (12-16); IMMATURE GRANULOCYTES 0.4 % (0-5); LYMPHOCYTES 13.3 % (15-50); MCH 31.9 pg (26.0-34.0); MCHC 34.6 g/dL (31.0-37.0); MCV 92.4 fL (80.0-100.0); MEAN PLATELET VOLUME 11.5 fL (7.4-10.4); MONOCYTES 13.5 % (2-11); NEUTROPHILS 72.3 % (40-80); PLATELET COUNT 183 10x3/uL (130-400); RBC 5.26 10x6/uL (4.00-5.40); RDW 14.2 % (11.5-14.5); WBC 10.3 10x3/uL (4.8-10.8)
[2019-09-28 20:56] LABS: BACTERIA MANY /hpf (NEGATIVE); BILIRUBIN NEGATIVE (NEGATIVE); EPITHELIAL CELLS OCC /hpf (0-5); GLUCOSE NEGATIVE (NEGATIVE); KETONE NEGATIVE (NEGATIVE); NITRITE POSITIVE (NEGATIVE); RED CELLS - URINE OCC /hpf (0-5); UROBILINOGEN NORMAL (NORMAL); WHITE CELLS - URINE 0-5 /hpf (NEGATIVE)
[2019-09-28 21:04] LABS: APTT 27.8 SECONDS (22.8-39.4); INR 1.12 (0.85-1.17); PROTIME 14.4 SECONDS (11.6-15.0)
[2019-09-28 21:09] LABS: CALC OSMOLALITY 274 mosm/kg (275-300); CALCIUM 9.8 mg/dL (8.5-10.1); CARBON DIOXIDE 27.4 mmol/L (21.0-32.0); CHLORIDE - SERUM 100 mmol/L (98-107); CREATININE - SERUM 1.2 mg/dL (0.6-1.3); GLUCOSE 71 mg/dL (74-106); SODIUM 138 mmol/L (136-145); UREA NITROGEN 14 mg/dL (7-18); eGFR NON AFRICAN AMERICAN 47 mL/min (90-120)
[2019-09-28 21:12] VITALS: BP 139/59
[2019-09-28 21:27] LABS: ALKALINE PHOSPHATASE 84 U/L (30-120); ALT (SGPT) 26 U/L (10-68); BILIRUBIN - TOTAL 0.94 mg/dL (0.2-1.3); CKMB 1.2 U/L (0.0-3.6); CREATINE KINASE 50 UL (21-215); TROPONIN-I 0.032 ng/mL (0.000-0.060)
--- NOTE | 2019-09-28 22:50 | NUR ---
PT TO ROOM 2110 @ 2250 VIA W/C. NO S/S OF DISTRESS OBSERVED, RR EVEN AND UNLABORED ON 3L O2 VIA NC. PIV TO LT AC, INFUSING ABX, DRSG C/D/I. VSS. PATIENT DENIES NEEDS AT THIS TIME. CL IN REACH, BED LOCKED AND LOWERED. WILL CTM. ALLERGY BAND APPLIED.
--- NOTE | 2019-09-29 00:20 | NUR ---
QUICK START, MED REC, ADULT HX, SRS COMPLETED.
[2019-09-29 03:26] VITALS: BP 104/47; BMI 38.4
[2019-09-29 04:30] VITALS: BP 142/73
[2019-09-29 05:19] LABS: BASOPHILS 0.1 % (0-2); EOSINOPHILS 0 % (0-7); HEMATOCRIT 47.3 % (36.0-48.0); HEMOGLOBIN 16.1 g/dL (12-16); IMMATURE GRANULOCYTES 0.3 % (0-5); LYMPHOCYTES 10.6 % (15-50); MCH 31.5 pg (26.0-34.0); MCV 92.6 fL (80.0-100.0); MONOCYTES 2.4 % (2-11); NEUTROPHILS 86.6 % (40-80); PLATELET COUNT 169 10x3/uL (130-400); RBC 5.11 10x6/uL (4.00-5.40); RDW 14.2 % (11.5-14.5)
[2019-09-29 05:27] LABS: WBC 7.6 10x3/uL (4.8-10.8)
[2019-09-29 05:58] LABS: ALBUMIN 2.5 g/dL (3.4-5.0); BILIRUBIN - TOTAL 0.7 mg/dL (0.2-1.3); C-REACTIVE PROTEIN 11.1 mg/dL (0.0-0.9); CALCIUM 9.9 mg/dL (8.5-10.1); CREATININE - SERUM 1.2 mg/dL (0.6-1.3); PROTEIN - SERUM 7.1 g/dL (6.4-8.2)
[2019-09-29 06:00] LABS: ANION GAP 12.9 mmol/L (8-16); POTASSIUM - SERUM 4.9 mmol/L (3.5-5.1)
[2019-09-29 06:21] LABS: ERYTHROCYTE SEDIMENTATION RATE 15 mm/hr (0-30)
[2019-09-29 08:21] VITALS: BP 128/56
--- NOTE | 2019-09-29 08:32 | NUR ---
ROUNDING DONE WITH PATIENT ON 3L PER NC. STATES THAT SHE WEARS 4L AT HOME. ON HEART MONITOR SHOWING SR W 1 DEGREE AVB, BBB, HR 73. LEFT AC SEEN WITH SALINE LOCK. ON EP, LABS ARE WNL. WILL CONTINUE TO MONITOR AND ASSESS FOR NEEDS. CL IN USE. DENEIS NEEDS AT THIS TIME.
[2019-09-29 11:22] VITALS: BP 118/45
--- NOTE | 2019-09-29 11:56 | NUR ---
NUCLEAR MED TO CALL AND SAY THAT SALINE LOCK IS "HARD TO FLUSH". NEW 22G TO LEFT FA X 1 STICK PER THIS NURSE. WILL REMOVE AC WHEN BACK ON FLOOR.
--- NOTE | 2019-09-29 12:18 | NUR ---
BACK FROM VQ SCAN
--- NOTE | 2019-09-29 12:23 | NUR ---
LEFT AC REMOVED WITH TIP INTACT.
--- NOTE | 2019-09-29 13:23 | NUR ---
DENIES ANY NEEDS AT THIS TIME. SHE STATES THAT SHE WILL LET US KNOW WHEN SHE IS READY FOR A SHOWER, BED LINENS ALREADY CHANGED.
[2019-09-29 13:38] VITALS: Ht 162.6 cm; Wt 103.0 kg
--- NOTE | 2019-09-29 15:08 | NUR ---
WENT TO GIVE THE PATIENT HER TESSO CHRISTIE AND SHE WANTS TO WAIT UNTIL I CHECK HER BLOOD PRESSURE.
[2019-09-29 15:32] VITALS: BP 120/50
--- NOTE | 2019-09-29 16:23 | NUR ---
TYLENOL 650 MG GIVEN FOR HEADACHE. CONTAINER GIVEN FOR SPUTUM CULTURE.
--- NOTE | 2019-09-29 17:07 | NUR ---
GABBYM SENT TO LAB ORDERED.
--- NOTE | 2019-09-29 17:29 | NUR ---
DENIES ANY NEEDS AT THIS TIME. WILL CONTINUE TO MONITOR. BEDSIDE SHIFT REPORT GIVEN TO MAURY RENEE IN ROOM.
--- NOTE | 2019-09-29 19:09 | NUR ---
RECEIVED UP IN BED WITH EYES OPEN AND TV ON. ALERT AND ORIENTED. UP AD LB TO B/R. IV TO LT FA ASL. O2@ 3 LITERS PER N/C IN PLACE. TELEMETRY IN PLACE. DENIES ANY NEEDS AT THIS TIME.
[2019-09-29 20:30] VITALS: BP 123/53
[2019-09-30 00:30] VITALS: BP 122/58
[2019-09-30 04:30] VITALS: BP 139/67
[2019-09-30 05:31] LABS: BASOPHILS 0 % (0-2); EOSINOPHILS 0 % (0-7); HEMATOCRIT 44.5 % (36.0-48.0); HEMOGLOBIN 15.3 g/dL (12-16); IMMATURE GRANULOCYTES 0.3 % (0-5); MCH 31.3 pg (26.0-34.0); MCHC 34.4 g/dL (31.0-37.0); MEAN PLATELET VOLUME 12.1 fL (7.4-10.4); MONOCYTES 6.9 % (2-11); NEUTROPHILS 85.8 % (40-80); RBC 4.89 10x6/uL (4.00-5.40); RDW 14.2 % (11.5-14.5)
[2019-09-30 05:36] LABS: PLATELET COUNT 218 10x3/uL (130-400); WBC 12.1 10x3/uL (4.8-10.8)
[2019-09-30 05:45] LABS: ANION GAP 13.9 mmol/L (8-16); CALCIUM 9.9 mg/dL (8.5-10.1); CARBON DIOXIDE 24.1 mmol/L (21.0-32.0); CREATININE - SERUM 1.1 mg/dL (0.6-1.3)
--- NOTE | 2019-09-30 07:21 | NUR ---
RECIEVE REPORT. ALERT AND ORIENTED X4. SITTING UP IN BED WATCHING TV. DENIES ANY NEEDS. CONTINUE PLAN OF CARE AND SAFETY PRECAUTIONS.
[2019-09-30 08:06] VITALS: BP 137/53
[2019-09-30 11:47] VITALS: BP 122/46
[2019-09-30 15:55] VITALS: BP 131/60
--- NOTE | 2019-09-30 19:52 | NUR ---
RECEIVED BEDSIDE SHIFT REPORT. UP IN BED WITH EYES OPEN AND TV ON. ALERT AND ORIENTED X4. UP AD VARGHESE. C/O PRODUCTIVE COUGH WITH GREEN SPUTUM. RIGHT MID AND LOWER LOBE CRACKELS. O2@ 3 LITERS PER N/C IN PLACE. IV TO LT FA SL. TELEMETRY IN PLACE. DENIES ANY NEEDS.
[2019-09-30 20:30] VITALS: BP 103/52
[2019-10-01 00:30] VITALS: BP 117/37
[2019-10-01 04:30] VITALS: BP 127/50
[2019-10-01 05:56] LABS: BASOPHILS 0.1 % (0-2); EOSINOPHILS 0 % (0-7); HEMATOCRIT 44.2 % (36.0-48.0); HEMOGLOBIN 15.1 g/dL (12-16); IMMATURE GRANULOCYTES 0.5 % (0-5); LYMPHOCYTES 6.2 % (15-50); MCH 31.5 pg (26.0-34.0); MCHC 34.2 g/dL (31.0-37.0); MCV 92.3 fL (80.0-100.0); MEAN PLATELET VOLUME 12.1 fL (7.4-10.4); MONOCYTES 6.4 % (2-11); NEUTROPHILS 86.8 % (40-80); PLATELET COUNT 240 10x3/uL (130-400); RBC 4.79 10x6/uL (4.00-5.40); RDW 14.1 % (11.5-14.5); WBC 11.2 10x3/uL (4.8-10.8)
[2019-10-01 06:17] LABS: ANION GAP 12.6 mmol/L (8-16); CARBON DIOXIDE 25.2 mmol/L (21.0-32.0); CREATININE - SERUM 1.2 mg/dL (0.6-1.3)
[2019-10-01 06:22] LABS: POTASSIUM - SERUM 4.8 mmol/L (3.5-5.1)
--- NOTE | 2019-10-01 07:20 | NUR ---
RECIEVE REPORT. SITTING UP IN CHAIR RECIEVING UPDRAFT. DENIES ANY NEEDS. CONTINUE PLAN OF CARE AND SAFETY PRECAUTIONS.
[2019-10-01 08:43] VITALS: BP 130/52
[2019-10-01 11:46] VITALS: BP 126/48
[2019-10-01 15:47] VITALS: BP 124/78; BP 127/68
--- NOTE | 2019-10-01 19:25 | NUR ---
RECEIVED UP IN BED WITH EYES OPEN AND TV ON. ALERT AND ORIENTED X4. UP AD VARGHESE. WEARS BRIEFS IN BED. O2@ 3 LITERS PER N/C. IV TO LT FA SL.. TELEMETRY IN PLACE. DENIES ANY NEEDS AT THIS TIME.
[2019-10-01 20:00] VITALS: BP 120/53
[2019-10-02 00:55] VITALS: BP 128/62
[2019-10-02 04:42] VITALS: BP 147/74
[2019-10-02 06:34] LABS: BASOPHILS 0.1 % (0-2); EOSINOPHILS 0 % (0-7); HEMOGLOBIN 14.6 g/dL (12-16); IMMATURE GRANULOCYTES 0.7 % (0-5); LYMPHOCYTES 7.9 % (15-50); MCH 30.9 pg (26.0-34.0); MCHC 33.2 g/dL (31.0-37.0); MEAN PLATELET VOLUME 11.5 fL (7.4-10.4); MONOCYTES 7.9 % (2-11); NEUTROPHILS 83.4 % (40-80); PLATELET COUNT 231 10x3/uL (130-400); RBC 4.73 10x6/uL (4.00-5.40); RDW 14.2 % (11.5-14.5)
[2019-10-02 06:37] LABS: WBC 8.1 10x3/uL (4.8-10.8)
[2019-10-02 06:47] LABS: ANION GAP 10.9 mmol/L (8-16); CALCIUM 9.6 mg/dL (8.5-10.1); POTASSIUM - SERUM 4.9 mmol/L (3.5-5.1)
--- NOTE | 2019-10-02 07:57 | NUR ---
PT IN BED WITHH OB ELEVATED. O2 AT 5L VIA NC. EYES CLOSED. CHEST RISING AND FALLLING. BED LOW. CL IN REACH. WILL CONTINUE WITH POC.
[2019-10-02 09:58] VITALS: BP 139/58
--- NOTE | 2019-10-02 12:21 | NUR ---
OT NOTE: PT DOING MUCH BETTER TODAY. STATES THAT SHE FEELS MUCH BETTER TODAY. ABLE TO AMB TO AND FROM BATHROOM WITHOUT ASSIST; ABLE TO PERFORM TOILETING AND SINK HYGIENE WITH SPV/SBA; AMB INTO HALLWAY GREATER THAN 100 FT FOR STRENGHTENING AND ENDURANCE, REQUIRING 5L 02..PRACTICED USING ROLATOR WALKER THAT FAMILY BROUGHT UP FOR HER. EARLE ROLLE, OTR/L [id number]
[2019-10-02 12:56] VITALS: BP 143/69
--- NOTE | 2019-10-02 13:41 | NUR ---
Nutrition Follow-up: Good appetite/PO intake. Ate ~100% of breakfast this AM. Diet: Diabetic PO intake: 82% avg x 7 meals Wt: 228# (10/01 - bedscale); 223# ( - bedscale) Last BM: 2 days ago per pt Labs noted: Glu 166 Meds noted: Solumedrol, Protonix, Humulin -Continue current diet as tolerated. -Monitor wt; noted daily wts ordered. -RD following.
[2019-10-02 18:33] VITALS: BP 140/64
--- NOTE | 2019-10-02 18:38 | NUR ---
I have reviewed this patient and I concur with the Shift Assessment completed by the Licensed Practical Nurse today this shift.
--- NOTE | 2019-10-02 18:42 | NUR ---
OT NOTE: PT COMPLETED SUPINE TO SIT WITH SBA. PT COMPLETED UE AROM EXS. [id number] THANK YOU, MENDOZA PARRY
--- NOTE | 2019-10-02 19:15 | NUR ---
REPORT RECEIVED, WILL CONTINUE POC. PATIENT IS AAOX4, LYING IN SEMI-FOWLERS POSITION. NO S/S OF DISTRESS OBSERVED, RR EVEN AND UNLABORED ON ROOM AIR. PIV TO LT FA, SL, JULIANNG C/D/I. PATIENT DENIES NEEDS AT THIS TIME. CL IN REACH, BED LOCKED AND LOWERED. WILL CTM.
[2019-10-02 20:00] VITALS: BP 116/53
[2019-10-03] VITALS: BP 141/61
--- NOTE | 2019-10-03 02:13 | NUR ---
I have reviewed this patient and I concur with the Shift Assessment completed by the Licensed Practical Nurse today this shift.
[2019-10-03 04:00] VITALS: BP 132/62
[2019-10-03 07:22] LABS: ANION GAP 8.8 mmol/L (8-16); CALCIUM 9.4 mg/dL (8.5-10.1); CARBON DIOXIDE 28.1 mmol/L (21.0-32.0); POTASSIUM - SERUM 4.9 mmol/L (3.5-5.1)
[2019-10-03 07:33] LABS: BASOPHILS 0.1 % (0-2); EOSINOPHILS 0 % (0-7); HEMOGLOBIN 15.3 g/dL (12-16); IMMATURE GRANULOCYTES 1.4 % (0-5); LYMPHOCYTES 10.1 % (15-50); MCHC 33.3 g/dL (31.0-37.0); MCV 93.3 fL (80.0-100.0); MEAN PLATELET VOLUME 11.2 fL (7.4-10.4); MONOCYTES 9.8 % (2-11); NEUTROPHILS 78.6 % (40-80); PLATELET COUNT 244 10x3/uL (130-400); RBC 4.93 10x6/uL (4.00-5.40); RDW 14.2 % (11.5-14.5); WBC 8.8 10x3/uL (4.8-10.8)
--- NOTE | 2019-10-03 07:45 | NUR ---
AM ROUNDS COMPLETED. INTRODUCED MYSELF TO PT PRIMARY RN FOR TODAYS SHIFT. PT IS A&O SITTING UP IN BED RESTING QUIETLY. SHIFT ASSESSMENT COMPLETED. NO IMMEDIATE NEEDS AT THIS TIME. WILL REVIEW CHART AND ORDERS AND CPOC.
--- NOTE | 2019-10-03 08:19 | EC ---
PATIENT:TAPAN CARCAMO DATE OF SERVICE: 09/28/19 SEX: F MEDICAL RECORD: [id number] DATE OF : [birth year] LOCATION:D.M2 D.211 AGE OF PATIENT: 69 ADMISSION DATE: 09/28/19 REFERRING PHYSICIAN: INTERPRETING PHYSICIAN: RHONDA MIRELES MD ECHOCARDIOGRAM REPORT ECHO CHARGES 4 ECHO COMPLETE Date: 09/30/19 CLINICAL DIAGNOSIS: CHF ECHOCARDIOGRAPHIC MEASUREMENTS (adult normal given) AC root (d.<3.7cm) 3.0 cm LV Septum d (<1.2 cm> 1.2 cm Valve Excursion 1.7 cm LV Septum (systole) 1.4 cm Left Atria (s.<4.0cm> 3.7 cm LVPW d(<1.2cm) 1.5 cm RV (d.<2.3cm) 3.8 cm LVPW (sytole) 1.6 cm LV diastole(<5.6CM) 3.9 cm MV E-F(>70mm/sec) cm LV systole 2.8 cm LVOT Diameter 1.6 cm MV exc.(>10mm) 1.5 cm Est.ejection fraction (50-75%) % DOPPLER: LVIT cm/sec A 59. cm/sec E 74.0 cm/sec LA cm/sec RVSP 27 mmHg LVOT 93 cm/sec AOP1/2T m/s Asc. Ao 126 cm/sec RVOT 82 cm/sec RA cm/sec PA 132 cm/sec AV Gradient Peak 6.33 mmHg AV Mean 3.78 mmHg AV Area 1.7 cm MV Gradient Peak 4.67 mmHg MV Mean 2.09 mmHg MV Area cm COMMENTS: Yarn Twister: 2 SHAYAN COELHO Supervisor Statement Clerks: 3 Dr. Mahajan TAPE# PACS Pericardial Effusion N DATE OF SERVICE: Adequate 2D, color flow imaging and spectral Doppler, M-Mode. Mild LVH. LV internal dimensions are normal. Wall motion is normal. EF is greater than or equal to 55%. Aortic valve is tricuspid. No evidence of stenosis by Doppler interrogation. Left atrium is normal. Mitral valve shows no prolapse. Trace MR. Right-sided chambers are grossly normal. Trace TR. TRANSINT:[id number] Voice Confirmation ID: [id number] DOCUMENT ID: [id number] ECHOCARDIOGRAM REPORT [id number] TAPAN CARCAMO RHONDA MIRELES MD at 0819 CC: [id number] DICTATION DATE: 10/01/19927 PATROL MAN: 10/01/19 1041 ADM IN [place] [id number] [place] [id number]
[2019-10-03 09:00] VITALS: BP 151/61
[2019-10-03 12:00] VITALS: BP 155/60
--- NOTE | 2019-10-03 19:15 | NUR ---
REPORT RECEIVED, WILL CONTINUE POC. PATIENT IS AAOX4, SITTING IN CHAIR. NO S/S OF DISTRESS OBSERVED, RR EVEN AND UNLABORED ON 4L O2 VIA NC. PIV TO LT FA, SL. CUP OF ICE GIVEN PER REQUEST. PATIENT DENIES FURTHER NEEDS AT THIS TIME. CL IN REACH, WILL CTM.
--- NOTE | 2019-10-03 21:00 | NUR ---
PT C/O PAIN. PRN NORCO ADMINISTERED PER ORDERS.
[2019-10-03 21:17] VITALS: BP 154/79
[2019-10-04 00:31] VITALS: BP 118/61
[2019-10-04 04:40] VITALS: BP 146/57
[2019-10-04 05:51] LABS: BASOPHILS 0.1 % (0-2); EOSINOPHILS 0 % (0-7); HEMATOCRIT 47.9 % (36.0-48.0); IMMATURE GRANULOCYTES 2.6 % (0-5); LYMPHOCYTES 10.6 % (15-50); MCH 31.3 pg (26.0-34.0); MCHC 33.4 g/dL (31.0-37.0); MCV 93.6 fL (80.0-100.0); MEAN PLATELET VOLUME 10.8 fL (7.4-10.4); MONOCYTES 8.4 % (2-11); NEUTROPHILS 78.3 % (40-80); PLATELET COUNT 259 10x3/uL (130-400); RBC 5.12 10x6/uL (4.00-5.40); RDW 13.9 % (11.5-14.5); WBC 8.2 10x3/uL (4.8-10.8)
[2019-10-04 06:09] LABS: CALCIUM 9.7 mg/dL (8.5-10.1); CARBON DIOXIDE 29.9 mmol/L (21.0-32.0); CREATININE - SERUM 1.1 mg/dL (0.6-1.3); POTASSIUM - SERUM 4.9 mmol/L (3.5-5.1)
--- NOTE | 2019-10-04 07:33 | NUR ---
ROUNDING DONE WITH PATIENT HAVNG NO NEEDS VOICED. ON 3L PER NC. LEFT FA SEEN WITH SALINE LOCK. ON EP, LABS NORMAL. ON LOVENOX. CALL LIGHT IS IN USE. WILL MONITOR.
[2019-10-04 08:04] VITALS: BP 130/51
[2019-10-04 12:34] VITALS: BP 111/60
--- NOTE | 2019-10-04 13:39 | NUR ---
UP TO RESTROOM. DENIES NEEDS AT THIS TIME.
--- NOTE | 2019-10-04 15:26 | NUR ---
REPORT RECD FROM PADMINI XIE RN. CARE OF PT ASSUMED. PT IS AAO X 4 SITTING IN BED WITH EYES OPEN. RESPIRATIONS ARE EVEN AND UNLABORED. PT DENIES PRESENCE OF N/V/DYSPNEA/SOB AT THIS TIME. BED IS IN THE LOWEST POSITION. CALL LIGHT AND BEDSIDE TABLE ARE WITHIN REACH. SIDE RAILS X 2. PT DENIES FURTHER NEEDS. WILL CONT TO MONITOR. ALL FALL PRECAUTIONS ARE IN PLACE.
[2019-10-04 16:11] VITALS: BP 119/53
--- NOTE | 2019-10-04 18:12 | NUR ---
OT NOTE: PT COMPLETED SIT TO STAND WITH SBA.PT COMPLETED IN ROOM MOB WITH SPV. PT COMPLETED BUE AROM EXS WHILE SEATED IN CHAIR. [phone] THANK YOU,MENDOZA PARRY
--- NOTE | 2019-10-04 19:19 | NUR ---
REPORT RECEIVED, WILL CONTINUE POC. PATIENT IS AAOX4, LYING IN SEMI-FOWLERS POSITION. NO S/S OF DISTRESS OBSERVED, RR EVEN AND UNLABORED ON 3L O2 VIA NC. PIV TO LT FA, SL. PATIENT DENIES NEEDS AT THIS TIME. CL IN REACH, BED LOCKED AND LOWERED. WILL CTM.
[2019-10-04 20:00] VITALS: BP 146/83
[2019-10-05] VITALS: BP 142/69
--- NOTE | 2019-10-05 03:42 | NUR ---
I have reviewed this patient and I concur with the Shift Assessment completed by the Licensed Practical Nurse today this shift.
[2019-10-05 04:00] VITALS: BP 121/1; BP 121/61
[2019-10-05 04:58] LABS: HEMATOCRIT 46.9 % (36.0-48.0); HEMOGLOBIN 15.9 g/dL (12-16); MCH 31.8 pg (26.0-34.0); MCHC 33.9 g/dL (31.0-37.0); MCV 93.8 fL (80.0-100.0); MEAN PLATELET VOLUME 11.2 fL (7.4-10.4); PLATELET COUNT 273 10x3/uL (130-400); RDW 14.2 % (11.5-14.5); WBC 9.1 10x3/uL (4.8-10.8)
[2019-10-05 05:30] LABS: ALBUMIN 2.6 g/dL (3.4-5.0); ANION GAP 7.6 mmol/L (8-16); BILIRUBIN - TOTAL 0.32 mg/dL (0.2-1.3); CALCIUM 9.4 mg/dL (8.5-10.1); CARBON DIOXIDE 31.4 mmol/L (21.0-32.0); CREATININE - SERUM 1.1 mg/dL (0.6-1.3); PROTEIN - SERUM 6.1 g/dL (6.4-8.2)
[2019-10-05 06:49] LABS: LYMPHOCYTES 15 % (15-50); MONOCYTES 8 % (2-11); NEUTROPHILS 77 % (40-80); PLATELET ESTIMATE NORMAL
[2019-10-05 09:55] VITALS: BP 143/73
--- NOTE | 2019-10-05 09:57 | MORECARE ---
CASE MANAGEMENT DISCHARGE SUMMARY PATIENT: TAPAN CARCAMO UNIT: [id number] ADM DATE: 09/28/19 AGE: 69 : 51 SEX: F ROOM/BED: D.2110 AUTHOR: ISATU PADILLA PHYSICIAN: REFERRING PHYSICIAN: KALLI SEO MD DATE OF SERVICE: 10/05/19 Discharge Plan Patient Name: TAPAN CARCAMO [facility] : 1950 Planned Disposition: Home Anticipated Discharge Date: 10/05/19 Discharge Date: Expected LOS: 7 Initial Reviewer: [email or web address] Initial Review Date: 10/05/2019 Generated: 10/05/19 10:57 am Coverage Notice Reviewer: [id number] - Nick Garvey Notice Issued Date-Time: 10/05/2019 8:50 Notice Type: IM Discharge Notice Notice Delivered To: Patient Relationship to Patient: Solderer Dipper Name: Delivery Method: HAND - Hand Delivered Litzy Days: Prior Verbal Notification: Recipient Understood Notice: Yes Recipient Signature: Yes Med Rec Note Co-signed by Attending: Coverage Notice Comment: Patient Name: TAPAN CARCAMO Page 13341 at 0957 All edits/amendments must be made on the electronic document DICTATION DATE: 10/05/19956 BUDGET EXAMINER: EWA 10/05/19956 RPT#: [id number] DC DATE: STATUS: ADM IN [place] [address] [place] [address] END OF REPORT
--- NOTE | 2019-10-05 10:00 | NUR ---
OOB AMBULATING WITH PT ASSIST.
--- NOTE | 2019-10-05 10:06 | MORECARE ---
CASE MANAGEMENT DISCHARGE SUMMARY PATIENT: TAPAN CARCAMO UNIT: [id number] ADM DATE: 09/28/19 AGE: 69 : 52 SEX: F ROOM/BED: D.9458 AUTHOR: VALERIE,DOC PHYSICIAN: REFERRING PHYSICIAN: KALLI SEO MD DATE OF SERVICE: 10/05/19 Discharge Plan Patient Name: TAPAN CARCAMO Facility: [facility]:[place] : 1950 Planned Disposition: Home Anticipated Discharge Date: 10/05/19 Discharge Date: Expected LOS: 7 Initial Reviewer: [email or web address] Initial Review Date: 10/05/2019 Generated: 10/05/19 11:05 am Comments DCP- Discharge Planning Updated by [id number]: Nick Gavrey on 10/05/19 9:[address] Patient Name: TAPAN CARCAMO Admission Status: ER Accout number: [id number] Admission Date: 09-28-2019 : 1950 Admission Diagnosis: Attending: KALLI SEO Current LOS: 7 Anticipated DC Date: 10-05-2019 Planned Disposition: Home Primary Insurance: [facility] MEDICARE SOLUTIONS Discharge Planning Comments: CM MET WITH PT IN ROOM TO DISCUSS DISCHARGE PLANNING AND NEEDS. PT REPORTS LIVING AT HOME INDEPENDENTLY WITH ADULT SON AND DAUGHTER IN LAW. PT HAS NEBULIZER, HOME/PORTABLE OXYGEN AND ROLLING WALKER FROM [facility]. PT HAS NO SERVICES ASSISTING IN THE HOME. CM DISCUSSED AVAILABILITY OF HOME HEALTH, REHAB SERVICES AND MEDICAL EQUIPMENT. PT DENIES DISCHARGE NEEDS, REPORTS HER SON WILL PICK HER UP FOR DISCHARGE HOME. IMPORTANT MESSAGE FROM MEDICARE PROVIDED AND EXPLAINED. Research Statistician: Nick Garvey DCPIA - Discharge Planning Initial Assessment Updated by [email or web address]: Nick Garvey on 10/05/19 10:00 am * Is the patient Alert and Oriented? Yes * How many steps to enter\exit or inside your home? 3-O/13-I * PCP DR. WANG * Pharmacy [facility] ON [address] * Preadmission Environment Home with Family * ADLs Independent * Equipment Nebulizer Oxygen Rolling Walker * Other Equipment HOME AND PORTABLE OXYGEN [facility] PROVIDER * List name and contact numbers for known caregivers / representatives who currently or will assist patient after discharge: DIMAS AND RAMÍREZ CARCAMO, SON AND DAUGHTER IN LAW, * Verbal permission to speak to the caregivers and representatives has been obtained from the patient. N/A * Community resources currently utilized None * Please name any agencies selected above. NONE * Additional services required to return to the preadmission environment? No * Can the patient safely return to the preadmission environment? Yes * Has this patient been hospitalized within the prior 30 days at any hospital? No Coverage Notice Reviewer: [id number] Claudia Garvey Notice Issued Date-Time: 10/05/2019 8:50 Notice Type: IM Discharge Notice Notice Delivered To: Patient Relationship to Patient: Charge Out Clerk Name: Delivery Method: HAND - Hand Delivered Litzy Days: Prior Verbal Notification: Recipient Understood Notice: Yes Recipient Signature: Yes Med Rec Note Co-signed by Attending: Coverage Notice Comment: Last DP export: 10/05/19 8:57 am Patient Name: TAPAN CARCAMO Page [id number] at 1006 All edits/amendments must be made on the electronic document DICTATION DATE: 10/05/19 1005 HEAVY DUTY TRUCK MECHANIC: EWA 10/05/19 1005 RPT#: [id number] DC DATE: STATUS: ADM IN [facility] [address] [place] [address] END OF REPORT
[2019-10-05] MEDS ORDERED: PREDNISONE20 MG PO (12:31)
--- NOTE | 2019-10-05 15:13 | NUR ---
IV AND TELEMETRY DCD. DC PLANS GIVEN. UNDERSTANDING VOICED. ESCORTED TO CAR BY W/C.
--- NOTE | 2019-10-08 09:16 | MORECARE ---
CASE MANAGEMENT DISCHARGE SUMMARY PATIENT: TAPAN CARCAMO UNIT: [id number] ADM DATE: 09/28/19 AGE: 69 : 51 SEX: F ROOM/BED: D.8730 AUTHOR: VALERIE,DOC PHYSICIAN: REFERRING PHYSICIAN: KALLI SEO MD DATE OF SERVICE: 10/08/19 Discharge Plan Patient Name: TAPAN CARCAMO Facility: [facility]:[place] : 1950 Planned Disposition: Home Anticipated Discharge Date: 10/05/19 Discharge Date: 10/05/2019 Expected LOS: 7 Initial Reviewer: [email or web address] Initial Review Date: 10/05/2019 Generated: 10/08/19 10:16 am Comments DCP- Discharge Planning Updated by [email or web address]: Nick Garvey on 10/05/19 8:[address] Patient Name: TAPAN CARCAMO Admission Status: ER Accout number: [id number] Admission Date: 09-28-2019 : 1950 Admission Diagnosis: Attending: KALLI SEO Current LOS: 7 Anticipated DC Date: 10-05-2019 Planned Disposition: Home Primary Insurance: [facility] MEDICARE SOLUTIONS Discharge Planning Comments: CM MET WITH PT IN ROOM TO DISCUSS DISCHARGE PLANNING AND NEEDS. PT REPORTS LIVING AT HOME INDEPENDENTLY WITH ADULT SON AND DAUGHTER IN LAW. PT HAS NEBULIZER, HOME/PORTABLE OXYGEN AND ROLLING WALKER FROM [facility]. PT HAS NO SERVICES ASSISTING IN THE HOME. CM DISCUSSED AVAILABILITY OF HOME HEALTH, REHAB SERVICES AND MEDICAL EQUIPMENT. PT DENIES DISCHARGE NEEDS, REPORTS HER SON WILL PICK HER UP FOR DISCHARGE HOME. IMPORTANT MESSAGE FROM MEDICARE PROVIDED AND EXPLAINED. Store Standards Associate: Nick Garvey DCPIA - Discharge Planning Initial Assessment Updated by [id number]: Nick Garvey on 10/05/19 10:00 am * Is the patient Alert and Oriented? Yes * How many steps to enter\exit or inside your home? 3-O/13-I * PCP DR. WANG * Pharmacy [facility] ON [address] * Preadmission Environment Home with Family * ADLs Independent * Equipment Nebulizer Oxygen Rolling Walker * Other Equipment HOME AND PORTABLE OXYGEN [facility] PROVIDER * List name and contact numbers for known caregivers / representatives who currently or will assist patient after discharge: ORACIO CARCAMO, SON AND DAUGHTER IN LAW, * Verbal permission to speak to the caregivers and representatives has been obtained from the patient. N/A * Community resources currently utilized None * Please name any agencies selected above. NONE * Additional services required to return to the preadmission environment? No * Can the patient safely return to the preadmission environment? Yes * Has this patient been hospitalized within the prior 30 days at any hospital? No Coverage Notice Reviewer: [email or web address] Claudia Garvey Notice Issued Date-Time: 10/05/2019 8:50 Notice Type: IM Discharge Notice Notice Delivered To: Patient Relationship to Patient: Level Vial Inspector And Tester Name: Delivery Method: HAND - Hand Delivered Litzy Days: Prior Verbal Notification: Recipient Understood Notice: Yes Recipient Signature: Yes Med Rec Note Co-signed by Attending: Coverage Notice Comment: Last DP export: 10/05/19 8:06 am Patient Name: TAPAN CARCAMO Page 00451 at 0916 All edits/amendments must be made on the electronic document DICTATION DATE: 10/08/19915 PMP CERTIFIED PROJECT MANAGER: EWA 10/08/19915 RPT#: [id number] DC DATE:10/05/19 STATUS: DIS IN [facility] [address] [place] [address] END OF REPORT
== END 2019-10-05 15:14 | disposition home or self-care (01) | DRG 190 ==
LOC: D.ER 20:11 → D.M2 20:50
PROVIDERS: Family Medicine; ADMIT Internal Medicine Nephrology; ATTEND Internal Medicine Nephrology
DX: J47.0 Bronchiectasis with acute lower respiratory infection (principal); J96.21 Acute and chronic respiratory failure with hypoxia; N39.0 Urinary tract infection, site not specified; I50.20 Unspecified systolic (congestive) heart failure; J18.9 Pneumonia, unspecified organism; K21.9 Gastro-esophageal reflux disease without esophagitis; I11.0 Hypertensive heart disease with heart failure; F32.9 Major depressive disorder, single episode, unspecified; E11.40 Type 2 diabetes mellitus with diabetic neuropathy, unspecified; M32.9 Systemic lupus erythematosus, unspecified; Z86.73 Personal history of transient ischemic attack (TIA), and cerebral infarction without residual deficits